=== PATIENT | female | born 2000 | race Caucasian/White ===

== ENCOUNTER 2022-03-10 11:52 | Observation (INO) | payer BC, SELFPAY ==
[2022-03-10] VITALS (8 sets, daily range): BP systolic 119–137; BP diastolic 61–84; PULSE 68–95; RESP 16; TEMP 36.9; BMI 35.9
--- NOTE | ~2022-03-10 | US_ITS ---
EXAMINATION: US OB limited w BPP, US OB transvaginal DATE: 03/10/2022 14:24 (accession [id number]), 03/10/2022 14:25 (accession [id number]) INDICATION: Low-lying placenta during third trimester TECHNIQUE: Real-time pelvic ultrasound was performed. The interpreting radiologist was not present fo r the study. COMPARISON: None. FINDINGS: There is a single living fetus in vertex presentation. The placenta is to the right and approximately 11.7 cm from the internal cervical os. heart rate is 151 beats per minute (bpm). The amniotic fluid index is 13.6 cm which is normal (normal range: 7.9 cm to 24.9 cm). Biophysical profile performed by the technologist: breathing (30 sec sustained breathing in 30 minutes): 0 out of 2 movement (3 gross body movements in 30 minutes): 2 out of 2 tone (one episode of zvkkkyn-gsvwpjwti-uzlphxu limb movement): 2 out of 2 Amniotic fluid pocket (2 cm): 2 out of 2 Total score: 6 out of 8 IMPRESSION: 1. Single living fetus in vertex presentation. 2. Biophysical profile 6 out of 8. No points for breathing. 3. Normal amniotic fluid index. 4. Placenta approximately 11.7 cm from the internal cervical os. Reviewed, dictated and finalized at location B. IMPRESSION: 1. Single living fetus in vertex presentation. 2. Biophysical profile 6 out of 8. No points for breathing. 3. Normal amniotic fluid index. 4. Placenta approximately 11.7 cm from the internal cervical os.
--- NOTE | 2022-03-10 12:24 | OBADM ---
This patient, Ruchi Hansen, admitted to the OB room [facility] for observation. Patient/family oriented to hospital policies and general routines including ID bracelet, bed and alarms, visiting hours, pain management, procedures, bathroom and other care routines, personal items, smoking policy, room service/diet, and visiting hours. Patient/Family are encouraged to report perceived risks to care and to ask questions if they do not understand what they are told or what they should do.
--- NOTE | 2022-03-10 12:43 | PC.NURSE ---
Gave report on patient to Dr. Velez. Orders received.
--- NOTE | 2022-03-10 14:47 | PC.NURSE ---
Dr. Velez called and given report of US, JASMYN, and BP. Orders received to have pt return to [facility] tomorrow for a BPP, and to follow up with her OBGYN.
--- NOTE | 2022-03-11 12:05 | PM.OBTRLD ---
OB - Triage/Final Diagnosis Visit Information Comments/Additional reasons for admission: I have assessed the risk for this patient, Ruchi Hansen, and determined that she would benefit from observation care. Evaluation Vital signs: Vital Signs - 24 hr 03/10/22 12:21 03/10/22 12:23 03/10/22 12:24 Temperature Pulse Rate 95 95 Respiratory Rate 16 Blood Pressure 137/84 137/84 03/10/22 12:30 03/10/22 12:45 03/10/22 14:22 Temperature Pulse Rate 81 92 70 Respiratory Rate Blood Pressure 137/75 119/78 119/76 03/10/22 14:24 03/10/22 14:30 Temperature 98.5 F Pulse Rate 68 Respiratory Rate Blood Pressure 120/61 Final Diagnosis (1) Vaginal spotting: Code(s): N93.9 - Abnormal uterine and vaginal bleeding, unspecified Status: Acute
== END 2022-03-10 15:04 | disposition home or self-care (01) ==
PROVIDERS: Admitting Provider Obstetrics & Gynecology; Visit Provider Obstetrics & Gynecology
DX: O26.859 Spotting complicating pregnancy, unspecified trimester (principal); Z3A.00 Weeks of gestation of pregnancy not specified
CPT/HCPCS: 76815; 76817; 76819; G0378; G0379